=== PATIENT | female | born 1985 | race African-American/Black ===

== ENCOUNTER 2023-06-24 17:21 | Emergency (ER) | payer MEDICAID, OTHER ==
[~2023-06-24] VITALS: Ht 157.5 cm; Wt 63.5 kg
[~2023-06-24 17:21] MED LIST: PREN-234 PO
[2023-06-24 17:37] VITALS: BP 117/90; PULSE 102; RESP 20; TEMP 97.6; O2SAT 97
[2023-06-24 18:11] LABS: APPEARANCE,URINE CLEAR (CLEAR); BILIRUBIN,URINE NEGATIVE (NEGATIVE); BLOOD, URINE NEGATIVE (NEGATIVE); COLOR,URINE YELLOW (YELLOW); LEUKOCYTE ESTERASE ,URINE NEGATIVE (NEGATIVE); NITRITE, URINE NEGATIVE (NEGATIVE); PH,URINE 6.5 (5.0-9.0); PROTEIN,URINE NEGATIVE (NEGATIVE); UGLUCOSE NEGATIVE (NEGATIVE); UROBILINOGEN,URINE 0.2 EU/dL (0.2 - 1)
[2023-06-24] MEDS ORDERED: NAPR-1704 PO (20:02)
[2023-06-24] MEDS ORDERED: ALBU0.0912 IH (20:02)
[2023-06-24] MEDS ORDERED: METH1ADH21 TP (20:02)
== END 2023-06-24 21:16 | disposition home or self-care (01) ==
LOC: MED 17:21
DX: S39.012A Strain of muscle, fascia and tendon of lower back, initial encounter (principal); J45.909 Unspecified asthma, uncomplicated; Z76.0 Encounter for issue of repeat prescription; Z79.899 Other long term (current) drug therapy; X58.XXXA Exposure to other specified factors, initial encounter; Y93.89 Activity, other specified; Y92.89 Other specified places as the place of occurrence of the external cause; Y99.8 Other external cause status
CPT/HCPCS: 72100; 81003; 81025; 99284